=== PATIENT | female | born 1995 | race Caucasian/White ===

== ENCOUNTER → 2021-02-26 | Day surgery (SDC) | payer OTHER ==
[~2021-02-26] VITALS: Ht 160 cm; Wt 62.1 kg
[~2021-02-26] MED LIST: ESTROGEN PO; MESTINON60 MG PO; [UNRECOGNIZED DRUG - OTHER]
[2021-02-26 07:22] LABS: HCG (URINE) SCREEN NEGATIVE (NEGATIVE)
[2021-02-26 08:01] LABS: BASOPHIL 0.9 % (0-2); EOSINOPHIL 7.1 % (0-5); HCT 38.3 % (37.0-47.0); HGB 12.6 g/dl (12.5-16.0); LYMPHOCYTE 23.1 % (15-48); MCHC 32.9 g/dL (32.0-36.0); MCV 100.3 fL (78.0-100.0); MONOCYTE 7.3 % (0-12); NEUTROPHIL 61.4 % (41-80); NRBC 0; PLT 201 K/uL (150-400); RBC 3.82 M/uL (4.20-5.40); RDW 12.4 % (11.5-14.0); WBC 5.8 K/uL (4.0-10.5)
[2021-02-26 08:27] LABS: CREATININE 0.74 mg/dL (0.51-0.95)
[2021-02-26 08:28] LABS: ALBUMIN 3.5 g/dL (3.4-5.0); BILIRUBIN - TOTAL 0.5 mg/dL (0.2-1.0); GLOBULIN (CALCULATION) 2.7 g/dL; POTASSIUM 4.2 mmol/L (3.5-5.1); TOTAL PROTEIN 6.2 g/dL (6.4-8.2)
== END | disposition home or self-care (01) ==
LOC: FAS 06:59
PROVIDERS: Oral & Maxillofacial Surgery
DX: K02.9 Dental caries, unspecified (principal); K01.1 Impacted teeth; K04.7 Periapical abscess without sinus; Z88.1 Allergy status to other antibiotic agents; Z79.899 Other long term (current) drug therapy; Z79.890 Hormone replacement therapy; G70.00 Myasthenia gravis without (acute) exacerbation; K21.9 Gastro-esophageal reflux disease without esophagitis
CPT/HCPCS: 36415; 80053; 84703; 85025; J1100; J2250; J2405; J2704; J3010; J7120